=== PATIENT | male | born 1965 | race Caucasian/White ===

== ENCOUNTER 2016-07-21 14:42 | Emergency (ER) | payer OTHER ==
[~2016-07-21] VITALS: Ht 182.9 cm; Wt 75.9 kg
[~2016-07-21 14:42] MED LIST: LANTUSP SQ; LEVO125T3 PO; LISI-357 PO; PENI500T PO; TYLE3 PO
[2016-07-21 15:05] VITALS: BP 126/79; PULSE 93; RESP 16; TEMP 98.7; O2SAT 97
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
[2016-07-21] MEDS ORDERED: OCUF0.3D RIGHT EYE (17:02)
[2016-07-21] MEDS ORDERED: INSU100V2 SQ (17:02)
[2016-07-21] MEDS ORDERED: PRED1SUS RIGHT EYE (17:02)
[2016-07-21] MEDS ORDERED: LISI-515 PO (17:02)
[2016-07-21] MEDS ORDERED: SYNT112T PO (17:02)
[2016-07-21] MEDS ORDERED: LANTUS2P SQ (17:02)
[2016-07-21] MEDS ORDERED: CYCLOBENZAPRINE HCL 10 MG TAB PO ONE (17:15)
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
[2016-07-21] MEDS ORDERED: CYCL5TAB PO (17:54)
== END 2016-07-21 18:00 | disposition home or self-care (01) ==
LOC: PHEFT 14:42
DX: S39.012A Strain of muscle, fascia and tendon of lower back, initial encounter (principal); M25.511 Pain in right shoulder; I10 Essential (primary) hypertension; E11.9 Type 2 diabetes mellitus without complications; E03.9 Hypothyroidism, unspecified; Z72.0 Tobacco use; Z79.4 Long term (current) use of insulin; V49.49XA Driver injured in collision with other motor vehicles in traffic accident, initial encounter; Y93.89 Activity, other specified; Y92.410 Unspecified street and highway as the place of occurrence of the external cause
CPT/HCPCS: 72100; 99283